=== PATIENT | female | born 1940 | race African-American/Black ===

== ENCOUNTER → 2020-07-22 | Outpatient (CLI) | payer MEDICARE, OTHER ==
[~2020-07-22] MED LIST: ASPI81TA39 PO; CARV25 PO; EZET1TAB37 PO; HYDR-1475 PO; NIFE-39 PO
== END | disposition home or self-care (01) ==
LOC: RADMN 10:35
PROVIDERS: ATTEND Legal Medicine
DX: M50.223 Other cervical disc displacement at C6-C7 level (principal); M41.82 Other forms of scoliosis, cervical region; M43.12 Spondylolisthesis, cervical region; M89.38 Hypertrophy of bone, other site; M48.02 Spinal stenosis, cervical region; E04.2 Nontoxic multinodular goiter
CPT/HCPCS: 72125

== ENCOUNTER → 2021-01-29 | Outpatient (CLI) | payer MEDICARE, OTHER ==
[~2021-01-29] MED LIST changes: -HYDR-1475 PO; +HYDR25TA2 PO
== END | disposition home or self-care (01) ==
LOC: RADPV 10:37
PROVIDERS: ATTEND Legal Medicine
DX: E04.2 Nontoxic multinodular goiter (principal)
CPT/HCPCS: 76536

== ENCOUNTER → 2021-11-05 | Outpatient (CLI) | payer MEDICARE, OTHER | END | disposition home or self-care (01) | LOC: RADMN 11:57 | PROVIDERS: ATTEND Legal Medicine | DX: M17.11 Unilateral primary osteoarthritis, right knee (principal); M19.071 Primary osteoarthritis, right ankle and foot; M20.11 Hallux valgus (acquired), right foot | CPT/HCPCS: 73562-TC; 73630-TC ==

== ENCOUNTER → 2022-05-03 | Outpatient (CLI) | payer MEDICARE, OTHER ==
[~2022-05-03] MED LIST changes: +NIFE-129 PO; -NIFE-39 PO
== END | disposition home or self-care (01) ==
LOC: RADPV 10:30
PROVIDERS: ATTEND Internal Medicine Cardiovascular Disease
DX: I08.8 Other rheumatic multiple valve diseases (principal); I25.810 Atherosclerosis of coronary artery bypass graft(s) without angina pectoris
CPT/HCPCS: 93306

== ENCOUNTER → 2023-02-01 | Outpatient (CLI) | payer MEDICARE, OTHER | END | disposition home or self-care (01) | LOC: RADMN 12:12 | PROVIDERS: ATTEND Legal Medicine | DX: M17.11 Unilateral primary osteoarthritis, right knee (principal); M11.262 Other chondrocalcinosis, left knee; M25.862 Other specified joint disorders, left knee; M25.762 Osteophyte, left knee; M76.52 Patellar tendinitis, left knee | CPT/HCPCS: 73562-TC ==